=== PATIENT | male | born 1955 | race Caucasian/White ===

== ENCOUNTER → 2019-09-16 | Outpatient (CLI) | payer OTHER | LOC: M.MRI 09-07 16:19 → M.CRD 13:30 → M.MRI 14:30 | DX: J34.89 Other specified disorders of nose and nasal sinuses (principal); G45.9 Transient cerebral ischemic attack, unspecified ==

== ENCOUNTER → 2019-09-24 | Outpatient (CLI) | payer OTHER ==
--- NOTE | 2019-09-25 13:50 | EEG ---
[address] [address] EEG STUDY REPORT Name: KHOA AMAYA Room: [facility].#: [id number] Admission: 09/24/19 Attend Phys: Triston Astorga MD Discharge: Date of : 57 Report #: [id number] THIS REPORT FOR: //name// CC: Kelly Astorga DATE OF SERVICE: 09/24/2019 This patient is being evaluated for an episode of syncope. EEG is done to exclude the possibility of seizure. The patient's EEG was done by placing the electrode by standard 10-20 system of electrode placement. Both referential and sequential montages were used for recording. Background activity in this patient's EEG is about 10 Hz and 30 microvolt. Photic stimulation is unremarkable. The patient became drowsy and that is associated with bilateral slowing and vertex sharp waves. Throughout the record, no active epileptiform activity was noticed. IMPRESSION: This patient's EEG is unremarkable. No active epileptiform activity was noticed during this record. Thank you very much for this referral. <ELECTRONICALLY SIGNED> By: Triston Astorga MD 09/25/19 [id number] [id number] Astorga MD /nt
== END ==
LOC: M.CRD 09:03
DX: R55 Syncope and collapse (principal)

== ENCOUNTER 2021-02-10 12:56 | Emergency (ER) | payer OTHER ==
[~2021-02-10] VITALS: Ht 188 cm; Wt 79.4 kg
[2021-02-10 13:20] LABS: HEMATOCRIT 49.2 % (42.0-52.0); HEMOGLOBIN 16.7 gm/dL (14.0-18.0); MCV 85.3 fL (80.0-100.0); MPV 7.1 fl. (7.2-11.1); RBC 5.76 mil/uL (4.50-6.00); RDW-CV 13.4 % (10.5-14.5); WBC 7.3 thou/uL (4.0-11.0)
[2021-02-10 13:28] LABS: CREATININE 0.9 mg/dL (0.6-1.3); POTASSIUM 4.1 mmol/L (3.5-5.1)
[2021-02-10 13:34] LABS: AMP/METHAMP POSITIVE (Negative); BARBITURATES Negative (Negative); BENZODIAZEPINES Negative (Negative); COCAINE Negative (Negative); METHADONE Negative (Negative); OPIATES Negative (Negative); PCP Negative (Negative); THC POSITIVE (Negative)
[2021-02-10 14:50] LABS: ACETAMINOPHEN < 2 ug/mL (10-30); SALICYLATE < 2.8 mg/dL (2.8-20.0)
[2021-02-10 15:14] VITALS: BP 129/99
== END 2021-02-10 15:15 | disposition home or self-care (01) ==
LOC: M.ERS 12:56
PROVIDERS: Emergency Medicine
DX: F32.9 Major depressive disorder, single episode, unspecified (principal); F15.10 Other stimulant abuse, uncomplicated